=== PATIENT | male | born 1965 | race Caucasian/White ===

== ENCOUNTER 2018-06-20 13:44 | Emergency (ER) | payer BC ==
[2018-06-20] MEDS ORDERED: Lidocaine 1% 20 ML MDV ONE (13:52)
[2018-06-20] MEDS ORDERED: Adacel (T-DAP) 0.5 ML VIAL ONE (14:08)
[2018-06-20] MEDS ORDERED: Bacitracin Zinc 1 Packet ONE (14:18)
--- NOTE | 2018-06-20 18:54 | RAD ---
LEFT THUMB THREE VIEWS: 06/20/2018 FINDINGS: A soft tissue laceration is seen in the distal part of the thumb. No opaque foreign body or fracture is seen. The joints appear normal. IMPRESSION: Soft tissue laceration. POS: HOME
== END 2018-06-20 14:20 | disposition home or self-care (01) ==
LOC: BURERS 13:44
DX: S61.012A Laceration without foreign body of left thumb without damage to nail, initial encounter (principal); I10 Essential (primary) hypertension; E78.5 Hyperlipidemia, unspecified; W22.8XXA Striking against or struck by other objects, initial encounter
CPT/HCPCS: 12002; 90471; 90715; J2001

== ENCOUNTER 2024-10-01 06:38 | Emergency (ER) | payer MEDICARE, OTHER | END 2024-10-01 07:28 | disposition home or self-care (01) | LOC: BURERS 06:38 | DX: S90.32XA Contusion of left foot, initial encounter (principal); I10 Essential (primary) hypertension; E11.9 Type 2 diabetes mellitus without complications; W19.XXXA Unspecified fall, initial encounter | CPT/HCPCS: 99283 ==